=== PATIENT | female | born 1975 | race Caucasian/White ===

== ENCOUNTER 2017-06-13 12:04 | Emergency (ER) | payer OTHER ==
--- NOTE | 2017-06-13 12:33 | UC ---
Abdominal Pain Female HPI - HPI Summary HPI Summary: This 42-year-old lady comes to the urgent care today with her . She complains of abdominal pain that has been worsening over the past 2 weeks. She reports being constipated she has tried MiraLAX, mag citrate, and a fleets enema. Patient reports nausea but no vomiting. Patient reports no fever of note 6 months ago patient was started on for Calan for her headaches (chronic migraine) and recently that verapamil dose has been doubled - History of Current Complaint Chief Complaint: UCAbdominalPain Stated Complaint: ABD PAIN Time Seen by Provider: 06/13/17 12:31 Hx Obtained From: Patient ?: No Onset/Duration: Gradual Onset, Lasting Weeks - 2, Worse Since Timing: Constant - past three days Severity Initially: Moderate Severity Currently: Moderate Pain Intensity: 4 Pain Scale Used: 0-10 Numeric Location: Diffuse - But seems to be worse in the area around the ascending colon Radiates: No Character: Cramping Aggravating Factor(s): Nothing Alleviating Factor(s): Nothing Associated Signs and Symptoms: Positive: Decreased Appetite Allergies/Adverse Reactions: Allergies Allergy/AdvReac Type Severity Reaction Status Date / Time Iodinated Contrast- Oral and Allergy Swelling Verified 06/13/17 12:18 IV Dye Of Face,Lips,& Throat iodine Allergy Swelling Verified 06/13/17 12:18 Home Medications: Home Medications Verapamil TAB* [Calan TAB*] 120 mg PO DAILY 06/13/17 [History Confirmed 06/13/17 ] levETIRAcetam TAB* [Keppra TAB*] 1 tab PO BID 06/13/17 [History Confirmed ] PMH/Surg Hx/FS Hx/Imm Hx Previously Healthy: No Respiratory History: Asthma Neurological History: Seizures, Migraine Other History Of: Negative For: Anticoagulant Therapy - Surgical History Surgical History: Yes Surgery Procedure, Year, and Place: TUBAL LIGATION 2001 [facility] [place]. PARTIAL HYSTERECTOMY 2006 [facility] [place]. HEART CATH 2010 [place]. CHOLECYSTECTOMY - Family History Known Family History: Positive: Cardiac Disease - WPW, Hypertension, Diabetes, Other - Lymphoma, CVA - Social History Occupation: Unemployed Lives: With Family Alcohol Use: None Substance Use Type: None Smoking Status (MU): Never Smoked Tobacco Review of Systems Constitutional: Negative Skin: Negative Eyes: Negative ENT: Negative Respiratory: Negative Cardiovascular: Negative Gastrointestinal: Abdominal Pain, Other - Constipation Genitourinary: Negative Motor: Negative Neurovascular: Negative Musculoskeletal: Negative Neurological: Negative Psychological: Negative Is Patient Immunocompromised?: No All Other Systems Reviewed And Are Negative: Yes Physical Exam Triage Information Reviewed: Yes Appearance: Well-Appearing, No Pain Distress, Well-Nourished Vital Signs: Initial Vital Signs Temp 97.6 F 06/13/17 12:14 Pulse 87 06/13/17 12:14 Resp 18 06/13/17 12:14 BP 112/74 06/13/17 12:14 Pulse Ox 100 06/13/17 12:14 Vital Signs Reviewed: Yes Eye Exam: Normal Eyes: Positive: Conjunctiva Clear ENT Exam: Normal ENT: Positive: Normal ENT inspection, Hearing grossly normal. Negative: Nasal congestion, Trismus, Muffled voice, Hoarse voice Neck exam: Normal Neck: Positive: Supple, Nontender Respiratory Exam: Normal Respiratory: Positive: Chest non-tender, Lungs clear, Normal breath sounds, No respiratory distress, No accessory muscle use Cardiovascular Exam: Normal Cardiovascular: Positive: RRR, No Murmur, Pulses Normal, Brisk Capillary Refill Abdominal Exam: Normal Abdomen Description: Positive: No Organomegaly, Soft, Other: - Tendernes right upper and lower quadrant. Negative: CVA Tenderness (R), CVA Tenderness (L) Bowel Sounds: Positive: Present Musculoskeletal Exam: Normal Musculoskeletal: Positive: Strength Intact, ROM Intact, No Edema Neurological Exam: Normal Neurological: Positive: Alert, Muscle Tone Normal Psychological Exam: Normal Skin Exam: Normal Diagnostics - Laboratory Diagnostic Studies Completed/Ordered: UA was positive for +2blood, 1+ leuks Re-Evaluation - Re-Evaluation First Eval Change: Improved - Large amount of stool after enema patient reports feeling much better Abd Pain Female Course/Dx - Course Course Of Treatment: #1 hematuriapatient has no symptoms of urinary tract infection will cultures urine on CT Scan assist with seen on her right kidney will follow up with primary care doctor #2 abdominal painconstipation complaints of abdominal pain complaints resolved after enema reviewed options for patient to decrease problem in the future - Differential Dx/Diagnosis Provider Diagnoses: Hematuria, constipation Discharge - Sign-Out/Discharge Documenting (check all that apply): Discharge - Discharge Plan Condition: Stable Disposition: HOME Patient Education Materials: Constipation (ED), High Fiber Diet (ED), Hematuria (ED), Fleet Enema (ED) Referrals: Diana Maher MD [Primary Care Provider] - 1 Week Additional Instructions: Please follow with her primary care doctor to for reevaluation of the blood that we seen in your urine today. I'm also sending your urine for culture we will call you if you need any antibiotics. Please increase the amount of plain water that you drink every day to help manage constipation and continuation of Metamucil or MiraLAX is an absolute fine supplement for your bowel regimen - Billing Disposition and Condition Condition: STABLE Disposition: HOME
--- NOTE | 2017-06-13 13:14 | RAD ---
HISTORY: Constipation, nausea COMPARISONS: None VIEWS: Frontal supine and upright views of the abdomen. FINDINGS: BOWEL: There is a nonobstructive bowel gas pattern. There is a large amount of stool within the colon. CALCULI: There are no abnormal calculi. BONES AND SOFT TISSUES: There are no osseous abnormalities. OTHER FINDINGS: The lung bases are clear. There is no subphrenic gas. IMPRESSION: NONOBSTRUCTIVE BOWEL GAS PATTERN. LARGE AMOUNT OF STOOL WITHIN THE COLON.
[2017-06-13 14:16] VITALS: BP 136/66
--- NOTE | 2017-06-13 14:37 | RAD ---
INDICATION: Abdominal pain, hematuria. COMPARISON: Comparison is made with a prior pelvic ultrasound from May 17, 2016. TECHNIQUE: A CT scan of the abdomen and pelvis was performed without intravenous or oral contrast. Contiguous axial sections were obtained from the lung bases through the symphysis pubis. Images were reconstructed in the coronal and sagittal planes. FINDINGS: The lung bases are clear. No pleural effusion is present. The very superior aspect of the liver is cut off on the study. The liver is normal in size without significant focal abnormality on this noncontrast study. The spleen is upper limits of normal in size. The patient is status post cholecystectomy. The pancreas appears to be within normal limits. The adrenal glands and kidneys are normal in size. No renal calculi are seen. There are a couple hypodense right renal lesions measuring up to 2.1 cm in size likely representing cysts on this noncontrast study although nonspecific. Recommend a follow-up renal ultrasound for further evaluation. No hydronephrosis is seen. No ureteral or bladder calculi are noted. The aorta is normal in caliber without significant calcific plaque. No significant enlarged retroperitoneal lymph nodes are seen. The stomach, small and large bowel appear nondistended. The appendix is within normal limits. There is a moderate to large amount retained stool. There is mild sigmoid diverticulosis without evidence for diverticulitis or colitis. The patient appears to be status post partial hysterectomy. There is a fluid density lesion present within the cervix centered toward the left side measuring 2.7 x 2.0 cm in size which appears to correlate with a nabothian cyst on the prior pelvic ultrasound and appears slightly more prominent. No free intraperitoneal air or fluid is seen. No significant focal osseous abnormality is seen. IMPRESSION: 1. NO EVIDENCE FOR ACUTE FINDING OR CAUSE FOR THE PATIENT'S ABDOMINAL PAIN IS SEEN. 2. SMALL HYPODENSE RIGHT RENAL LESIONS LIKELY CYSTS RECOMMEND A FOLLOW-UP OUTPATIENT RENAL ULTRASOUND IN THIS PATIENT WITH A HISTORY OF HEMATURIA. 3. STATUS POST CHOLECYSTECTOMY AND PARTIAL HYSTERECTOMY. 4. MODERATE TO LARGE AMOUNT RETAINED STOOL.
[2017-06-13] MEDS ORDERED: Sodium Phosphate ADULT ENEMA* 118 ml bottle PR ONE (14:49)
== END 2017-06-13 15:58 | disposition home or self-care (01) ==
LOC: UCEAST 12:04
DX: R31.9 Hematuria, unspecified (principal); K59.00 Constipation, unspecified; R11.0 Nausea; Z90.49 Acquired absence of other specified parts of digestive tract; Z90.711 Acquired absence of uterus with remaining cervical stump; J45.909 Unspecified asthma, uncomplicated; R56.9 Unspecified convulsions; G43.909 Migraine, unspecified, not intractable, without status migrainosus; Z88.3 Allergy status to other anti-infective agents; Z91.041 Radiographic dye allergy status
CPT/HCPCS: 74019; 74176; 81003; 87086; 99213; A9270-GY; G0463

== ENCOUNTER 2018-03-25 16:56 | Emergency (ER) | payer OTHER ==
[2018-03-25 17:07] VITALS: BP 116/71
--- NOTE | 2018-03-25 17:54 | ED ---
Abdominal Pain/Female - HPI Summary HPI Summary: hx. of multiple ovarian cysts in the past, hx. of no dysuria pain began suddenly and awoke her from sleep earlier today. since then pain has persisted - History of Current Complaint Chief Complaint: UCAbdominalPain Stated Complaint: ABDOMINAL PAIN Time Seen by Provider: 03/25/18 16:57 Hx Obtained From: Patient Hx Last Menstrual Period: 13years ago ?: No Onset/Duration: Sudden Onset Timing: Constant Pain Intensity: 7 Location: Discrete At: RLQ Character: Sharp Alleviating Factor(s): Nothing Associated Signs and Symptoms: Positive: Negative Allergies/Adverse Reactions: Allergies Allergy/AdvReac Type Severity Reaction Status Date / Time Iodinated Contrast- Oral and Allergy Swelling Verified 03/25/18 17:07 IV Dye Of Face,Lips,& Throat iodine Allergy Swelling Verified 03/25/18 17:07 PMH/Surg Hx/FS Hx/Imm Hx Previously Healthy: No - hx. of pseudoseizures, hx. of partial hysterectomy, hx. of frequent falls Endocrine/Hematology History: Denies: Hx Anticoagulant Therapy Cardiovascular History: Reports: Hx Valvular Heart Disease - BICUSPID AORTIC VALVE replacement, Other Cardiovascular Problems/Disorders - VALVE REGURG Denies: Hx Congestive Heart Failure, Hx Pacemaker/ICD Respiratory History: Reports: Hx Asthma Denies: Hx Chronic Obstructive Pulmonary Disease (COPD) GI History: Reports: Other GI Disorders - Cholecystectomy History: Reports: Other Problems/Disorders - ovarian cysts Denies: Hx Kidney Stones, Hx Renal Disease Sensory History: Reports: Hx Contacts or Glasses - GLASSES Denies: Hx Hearing Aid Opthamlomology History: Reports: Hx Contacts or Glasses - GLASSES Neurological History: Reports: Hx Migraine - LAST ONE A YR AGO - Surgical History Surgery Procedure, Year, and Place: TUBAL LIGATION 2001 [facility] [place]. PARTIAL HYSTERECTOMY 2006 [facility] [place]. HEART CATH 2010 [place]. CHOLECYSTECTOMY Hx Anesthesia Reactions: No Infectious Disease History: No Infectious Disease History: Denies: Traveled Outside the [place] in Last 30 Days - Family History Known Family History: Positive: Cardiac Disease - WPW, Hypertension, Diabetes, Other - Lymphoma, CVA - Social History Alcohol Use: None Hx Substance Use: No Substance Use Type: Reports: None Hx Tobacco Use: No Smoking Status (MU): Never Smoked Tobacco Review of Systems Constitutional: Negative Eyes: Negative ENT: Negative Cardiovascular: Negative Respiratory: Negative Positive: Abdominal Pain Genitourinary: Negative Positive: no symptoms reported Musculoskeletal: Negative Skin: Negative Neurological: Other - hx. of pseudoseizures Positive: Anxious, Other - chronic narcotic use All Other Systems Reviewed And Are Negative: Yes Physical Exam Triage Information Reviewed: Yes Vital Signs On Initial Exam: Initial Vitals Temp Pulse Resp BP Pulse Ox 36.7 C 83 16 116/71 98 03/25/18 16:58 03/25/18 16:58 03/25/18 16:58 03/25/18 16:58 03/25/18 16:58 Vital Signs Reviewed: Yes Appearance: Positive: Well-Appearing, No Pain Distress Skin: Positive: Warm Eyes: Positive: Normal ENT: Positive: Normal ENT inspection Respiratory/Lung Sounds: Positive: Clear to Auscultation Cardiovascular: Positive: Normal Abdomen Description: Positive: Other: - tender rlq, no rebound or rigidity Bowel Sounds: Positive: Present Musculoskeletal: Positive: Normal Neurological: Positive: Slurred Speech Diagnostics - Vital Signs Vital Signs Temp Pulse Resp BP Pulse Ox 03/25/18 16:58 36.7 C 83 16 116/71 98 - Laboratory Lab Results: Lab Results 03/25/18 Range/Units 17:31 POC Urine Color Yellow POC Urine Clarity Clear POC Urine pH 5.5 (5-9) POC Ur Specif Beals 1.020 (1.010-1.030) POC Urine Protein Negative (Negative) POC Ur Glucose (UA) Negative (Negative) POC Urine Ketones Negative (Negative) POC Urine Blood 1+ A (Negative) POC Urine Nitrite Negative (Negative) POC Urine Bilirubin Negative (Negative) POC Urine Urobilinogen 0.2 (Negative) POC U Leukocyte Esteras Trace A (Negative) Lab Statement: Any lab studies that have been ordered have been reviewed, and results considered in the medical decision making process. Abdominal Pain Fem Course/Dx - Diagnoses Provider Diagnoses: Right lower quadrant abdominal pain Discharge - Sign-Out/Discharge Documenting (check all that apply): Patient Departure All imaging exams completed and their final reports reviewed: No Studies - Discharge Plan Condition: Fair Disposition: HOME-RECOMMEND TO ED Referrals: Diana Maher MD [Primary Care Provider] - Additional Instructions: to go to the ER for further evaluation of the abdominal pain - Billing Disposition and Condition Condition: FAIR Disposition: Home-Recommend to ED
== END 2018-03-25 18:02 | disposition home health service (06) ==
LOC: UCEAST 16:56
DX: R10.31 Right lower quadrant pain (principal); Z90.711 Acquired absence of uterus with remaining cervical stump; Z90.49 Acquired absence of other specified parts of digestive tract; Z91.041 Radiographic dye allergy status
CPT/HCPCS: 81003; 87086; 99212; G0463

== ENCOUNTER 2018-03-25 18:17 | Observation (INO) | payer OTHER ==
--- NOTE | 2018-03-25 18:40 | ED ---
Abdominal Pain/Female - HPI Summary HPI Summary: Patient is a 42-year-old female who presents emergency department for right lower quadrant abdominal pain that started early this morning. Patient states she was feeling unwell last night and was awoken around 0 200 today with lower abdominal pain that has progressed throughout the day. Associated symptoms of nausea and decreased appetite. Patient denies fever, chills, vomiting, diarrhea , constipation, urinary symptoms. Past medical history of bicuspid aortic valve. Patient also notes history of endometriosis and ovarian cysts. Patient states pain today feels different than her typical endometrial pain. Symptoms are moderate in severity. No current modifying factors. - History of Current Complaint Chief Complaint: EDAbdPain Stated Complaint: ABD PAIN Time Seen by Provider: 03/25/18 18:38 Hx Obtained From: Patient Hx Last Menstrual Period: 13years ago Pain Intensity: 6 Allergies/Adverse Reactions: Allergies Allergy/AdvReac Type Severity Reaction Status Date / Time Iodinated Contrast- Oral and Allergy Swelling Verified 03/25/18 18:28 IV Dye Of Face,Lips,& Throat iodine Allergy Swelling Verified 03/25/18 18:28 Home Medications: Home Medications Fluticasone-Salmeterol 100-50* [Advair Diskus 100-50*] 1 puff INH BID 03/25/18 [ History Confirmed 03/25/18] Nitroglycerin TAB 0.4 MG* 0.4 mg SL . NEEDED PRN 03/25/18 [History Confirmed 03/25/18] Ondansetron [Zofran Odt] 4 mg PO TID PRN 03/25/18 [History Confirmed 03/25/18] oxyCODONE TAB* [Roxycodone TAB 5 mg*] 5 mg PO Q8H PRN 03/25/18 [History Confirmed 03/25/18] PMH/Surg Hx/FS Hx/Imm Hx Previously Healthy: Yes Endocrine/Hematology History: Denies: Hx Anticoagulant Therapy Cardiovascular History: Reports: Hx Valvular Heart Disease - BICUSPID AORTIC VALVE replacement, Other Cardiovascular Problems/Disorders - VALVE REGURG Denies: Hx Congestive Heart Failure, Hx Pacemaker/ICD Respiratory History: Reports: Hx Asthma Denies: Hx Chronic Obstructive Pulmonary Disease (COPD) GI History: Reports: Other GI Disorders - Cholecystectomy History: Reports: Other Problems/Disorders - ovarian cysts Denies: Hx Kidney Stones, Hx Renal Disease Sensory History: Reports: Hx Contacts or Glasses - GLASSES Denies: Hx Hearing Aid Opthamlomology History: Reports: Hx Contacts or Glasses - GLASSES Neurological History: Reports: Hx Migraine - LAST ONE A YR AGO - Surgical History Surgery Procedure, Year, and Place: TUBAL LIGATION 2001 [facility] [place]IAL [place]STERECTOMY 2006 [facility] [place]. [place]ART CATH 2010 [place]. CHOLECYSTECTOMY Hx Anesthesia Reactions: No Infectious Disease History: No Infectious Disease History: Denies: Traveled Outside the [place] in Last 30 Days - Family History Known Family History: Positive: Cardiac Disease - WPW, Hypertension, Diabetes, Other - Lymphoma, CVA - Social History Occupation: Unemployed Lives: With Family Alcohol Use: None Hx Substance Use: No Substance Use Type: Reports: None Hx Tobacco Use: No Smoking Status (MU): Never Smoked Tobacco Review of Systems Constitutional: Negative Negative: Fever, Chills Cardiovascular: Negative Respiratory: Negative Positive: Abdominal Pain, Nausea. Negative: Vomiting, Diarrhea Genitourinary: Negative All Other Systems Reviewed And Are Negative: Yes Physical Exam Triage Information Reviewed: Yes Vital Signs On Initial Exam: Initial Vitals Temp Pulse Resp BP Pulse Ox 97.6 F 87 16 114/70 98 03/25/18 18:26 03/25/18 18:26 03/25/18 18:26 03/25/18 18:26 03/25/18 18:26 Vital Signs Reviewed: Yes Appearance: Positive: Well-Appearing - Pt. lying in bed in NAD. Family present. Skin: Positive: Warm, Dry Head/Face: Positive: Normal Head/Face Inspection Eyes: Positive: Normal, EOMI Neck: Positive: Supple. Negative: Nuchal Rigidity Respiratory/Lung Sounds: Positive: Clear to Auscultation, Breath Sounds Present Cardiovascular: Positive: Normal, RRR Abdomen Description: Positive: Other: - Obese. Abd. is soft with marked tenderness. Negative: CVA Tenderness (R), CVA Tenderness (L) Neurological: Positive: Normal, CN Intact II-III Psychiatric: Positive: Affect/Mood Appropriate Diagnostics - Vital Signs Vital Signs Temp Pulse Resp BP Pulse Ox 03/25/18 18:26 97.6 F 87 16 114/70 98 - Laboratory Result Diagrams: 03/25/18 19:12 03/25/18 19:12 Lab Statement: Any lab studies that have been ordered have been reviewed, and results considered in the medical decision making process. Abdominal Pain Fem Course/Dx - Course Course Of Treatment: Pt. presenting with RLQ pain and nausea. Pt. is afebrile with stable vital signs. Pt. started on IV fluids and pain medication. Pending labs. Will scan without given contrast allergy. IMPRESSION: 1. CT findings of early appendicitis. No perforation or abscess. 2. No other acute findings or change from the comparison study. Labs show mild leukocytosis and CRP. I spoke with scott bran, Dr. Padilla, who reviewed ct scans. Dr. Padilla states that scans are not very impressive at this time and she is not convinced this is truly appendicitis. She will admit pt. to her service and see pt. in the a.m. Pt. given a dose of IV zosyn in ED. Plan discussed with pt. and family. - Diagnoses Differential Diagnosis: Positive: Appendicitis, Bowel Obstruction, Constipation , Diverticulitis, Ovarian Cyst, Renal Colic Provider Diagnoses: Appendicitis Discharge - Sign-Out/Discharge Documenting (check all that apply): Patient Departure - Discharge Plan Condition: Stable Disposition: ADMITTED TO [facility] - Billing Disposition and Condition Condition: STABLE Disposition: Admitted to [facility]
[2018-03-25] MEDS ORDERED: Ondansetron INJ* 2 MG/ML VIAL IV ONE ×2 (18:46→21:36)
[2018-03-25] MEDS ORDERED: NS 0.9% 1000 ML* 1,000 ML IV ONE (18:46)
[2018-03-25] MEDS ORDERED: Morphine VIAL* 4 MG/ML VIAL (1 ml vial) IV ONE (18:48)
[2018-03-25 19:37] LABS: ABS Basophils 0.1 10^3/ul (0-0.2); ABS Eosinophils 0.2 10^3/ul (0-0.6); ABS Monocytes 0.8 10^3/ul (0-0.8); ABS Nucleated RBC 0 10^3/ul; Eosinophil % 1.6 %; Hematocrit 44 % (35-47); Hemoglobin 14.9 g/dl (12.0-16.0); Lymphocyte % 16.6 %; Mean Corpuscular HGB Conc 34 g/dl (31-36); Mean Corpuscular Hemoglobin 32 pg (27-31); Mean Corpuscular Volume 95 fL (80-97); Mean Platelet Volume 8.6 fL (7.4-10.4); Nucleated Red Blood Cells % 0.1; Platelet Count 271 10^3/ul (150-450); Red Blood Count 4.66 10^6/ul (4.00-5.40); Red Cell Distribution Width 12 % (10.5-15); White Blood Count 12.2 10^3/ul (3.5-10.8)
[2018-03-25 19:44] LABS: Albumin 4.6 g/dL (3.2-5.2); Albumin/Globulin Ratio 1.7 (1-3); BUN/Creatinine Ratio 18.1 (8-20); C Reactive Protein 77.16 mg/L (<8.01); Calcium 9.4 mg/dL (8.6-10.3); EGFR African American 90.4 (>60); EGFR Non-African American 74.7 (>60); Globulin 2.7 g/dL (2-4); Potassium 4.1 mmol/L (3.5-5.0); Total Bilirubin 0.3 mg/dL (0.2-1.0); Total Protein 7.3 g/dL (6.4-8.9)
[2018-03-25] MEDS ORDERED: HYDROmorphone INJ1* 1 MG/ML SYRINGE IV SLOW PU ONE (20:18)
[2018-03-25] MEDS ORDERED: Piperacillin/Tazobac ADVAN(*) 3.375 GM in NS 0.9% 100 ML* 100 ML IVPB ONE (20:32)
[2018-03-25] MEDS ORDERED: HYDROmorphone INJ* 0.5 MG/0.5 ML SYRINGE IV PRN (20:41)
[2018-03-25] MEDS ORDERED: Ketorolac INJ* 30 MG/ML 1 ML VIAL IV PRN (20:41)
[2018-03-25] MEDS ORDERED: Albuterol HFA INHALER* 8 gm MDI INH PRN (20:49)
[2018-03-25] MEDS ORDERED: Nitroglycerin TAB 0.4 MG* 0.4 MG TAB SL PRN (20:49)
[2018-03-25] MEDS ORDERED: Verapamil TAB* 120 MG PO SCH (21:00)
[2018-03-25] MEDS ORDERED: Fluticasone-Salmeterol 100-50* DISKUS INH SCH (21:00)
[2018-03-25] MEDS ORDERED: Ondansetron INJ* 2 MG/ML VIAL ONE (21:37)
[2018-03-25] MEDS: levETIRAcetam TAB* 500 MG PO SCH (22:12)
[2018-03-25] MEDS ORDERED: Mometasone/Formoter 100/5 MDI INH SCH (22:15)
[2018-03-25] MEDS: Lactated Ringers 1000 ML Bag* 1,000 ML IV SCH (22:27)
[2018-03-25] MEDS: Verapamil TAB* 120 MG PO SCH (22:30)
[2018-03-26] MEDS: Piperacillin/Tazobactam VIAL*) 3.375 GM in NS 0.9% 100 ML* 100 ML IVPB SCH ×3 (00:39→10:07)
[2018-03-26] MEDS: Ondansetron INJ* 2 MG/ML VIAL IV PRN ×3 (01:59→11:30)
[2018-03-26 07:06] LABS: ABS Basophils 0.1 10^3/ul (0-0.2); ABS Eosinophils 0 10^3/ul (0-0.6); ABS Lymphocytes 1.8 10^3/ul (1.0-4.8); ABS Monocytes 0.6 10^3/ul (0-0.8); ABS Neutrophils 8.4 10^3/ul (1.5-7.7); ABS Nucleated RBC 0 10^3/ul; Eosinophil % 0.4 %; Hematocrit 36 % (35-47); Hemoglobin 12.3 g/dl (12.0-16.0); Lymphocyte % 16.4 %; Mean Corpuscular HGB Conc 34 g/dl (31-36); Mean Corpuscular Hemoglobin 32 pg (27-31); Mean Corpuscular Volume 94 fL (80-97); Mean Platelet Volume 8.5 fL (7.4-10.4); Nucleated Red Blood Cells % 0.1; Platelet Count 224 10^3/ul (150-450); Red Blood Count 3.85 10^6/ul (4.00-5.40); Red Cell Distribution Width 12 % (10.5-15)
[2018-03-26] MEDS: Lactated Ringers 1000 ML Bag* 1,000 ML IV SCH (08:33)
[2018-03-26] MEDS: levETIRAcetam TAB* 500 MG PO SCH (08:33)
--- NOTE | 2018-03-26 08:47 | PN ---
Progress Note - Progress Note Date of Service: 03/26/18 Note: Surgery Progress Note Please see full dictated H&P but briefly patient is a 42 yo F with bicuspid aortic valve who presents with 2 days RLQ abdominal pain, nausea, emesis. Was found to have WBC [address] abdomen showing possible early appendicitis. Informed consent was obtained for a laparoscopic appendectomy. Patient has a loop manager monitoring used for detection of arrhythmias (not a pacemaker or a defibrillator) and cardiology has been contacted.
[2018-03-26] MEDS: Verapamil TAB* 120 MG PO SCH (09:56)
--- NOTE | 2018-03-26 12:44 | HP ---
HISTORY AND PHYSICAL: DATE OF ADMISSION: 03/25/18 SERVICE: General Surgery. ATTENDING SURGEON: Dr. Nicki Padilla. ADMISSION DIAGNOSIS: Right lower quadrant pain, possible appendicitis. HISTORY OF PRESENT ILLNESS: Ms. Rivas is a very pleasant 42-year-old female with a history of bicuspid aortic valve, who presented to the emergency room on 03/25/18 with complaints of right lower quadrant abdominal pain that she said had begun that morning. She said that she was feeling unwell and was awoken early in the morning with right lower abdominal pain that progressively got worse throughout the day. She says that she has had nausea and decreased appetite and since being in the emergency room in the hospital, she has also had bouts of emesis. She has had lower abdominal pain in the past and she had multiple ovarian cysts that caused her pelvic pain. However, she says that this pain was somewhat different in that it just was in the right lower quadrant and remained there. She denies having any fevers and her bowel movements are normal. No diarrhea, no constipation. PAST MEDICAL HISTORY: Bicuspid aortic valve, endometriosis, ovarian cyst. PAST SURGICAL HISTORY: Laparoscopic cholecystectomy, abdominal hysterectomy for endometriosis, tubal ligation, and placement of a cardiac loop monitor. MEDICATIONS: 1. Keppra 500 mg p.o. b.i.d. 2. Verapamil 120 mg p.o. b.i.d. 3. Nitroglycerin 0.4 mg tablet as needed. 4. Albuterol 2 puffs inhale q.4 hours p.r.n. 5. Advair Diskus 1 puff inhale b.i.d. ALLERGIES: IV CONTRAST. FAMILY HISTORY: Positive for hypertension and diabetes. SOCIAL HISTORY: The patient lives with her family. She is nonsmoker. REVIEW OF SYSTEMS: Negative except for as noted in HPI. PHYSICAL EXAMINATION GENERAL: This is a female lying in bed, in no apparent distress, easily conversing. VITAL SIGNS: Temperature is 98.4, pulse is 72, respiratory rate is 14, O2 sat is 98% O2 on room air, and blood pressure is 97/53. RESPIRATORY: Clear to auscultation bilaterally. No wheezes, rhonchi, or rales. CARDIOVASCULAR: Regular rate and rhythm. ABDOMEN: Soft, nondistended, and tender in the right lower quadrant. EXTREMITIES: No edema. NEURO: Alert and oriented x3. DIAGNOSTIC STUDIES/LAB DATA: Laboratory values from 03/26/18, white blood cell count is 11, hemoglobin is 12.3, hematocrit is 36, platelets are 224. From 03/25/18, sodium is 138, potassium is 4.1, chloride is 107, CO2 24, BUN 15 , creatinine is 0.83, glucose is 98, C-reactive protein is 77. Radiology: CT abdomen and pelvis from 03/25/18 shows evaluation of the appendix to the maximum diameter of approximately 9 mm, minimal inflammatory changes are present in the adjacent mesentery. This represents a change from the comparison study where the appendix was measured approximately 6 mm in greatest diameter. CT findings are early appendicitis, no perforation or abscess. ASSESSMENT AND PLAN: Ms. Rivas is a very pleasant 42-year-old female with a history of bicuspid aortic valve with ovarian cyst and endometriosis, who presented to the emergency room with a 1-day history of right lower quadrant abdominal pain, anorexia, nausea, and vomiting. She was found to have a white blood cell count of 12 when she arrived in the emergency room with the CT scan showing possible early appendicitis with appendix that was 9 mm in diameter. However, this CT scan was also done with no oral or IV contrast and on review of the imaging, it appeared that there was minimal inflammation surrounding the appendix. The patient was admitted. She was placed on antibiotics; however, her right lower quadrant pain persisted overnight despite antibiotics and pain medications. Her white blood cell count was approximately same this morning and given these findings, she very likely does have appendicitis. I discussed with the patient the surgical option to be laparoscopic appendectomy and she wishes to pursue this. I discussed with her the risks, benefits, and alternatives of the procedure and the risks that included but are not limited to bleeding, infection, intraabdominal abscess, possible injury to neighboring anatomical structures and risk from the anesthesia. The patient of note has a cardiac loop monitor which she says it is only used to monitor for arrhythmias. I have spoken to the Cardiology who said that there is nothing to do with the device and after speaking to the rep from [employer] and Dr. Mendoza says that nothing intraoperatively needs to be done for this. The plan is for the patient to undergo surgery this afternoon with Dr. Taylor. [id number]/[facility] #: [id number] [facility]
[2018-03-26] MEDS ORDERED: Midazolam* 1 MG/ML 5 ML VIAL (5 MG) ONE (13:56)
[2018-03-26] MEDS ORDERED: Scopolamine 1.5 mg* PATCH ONE (13:56)
[2018-03-26] MEDS ORDERED: Bupivacaine 0.25% W/EPI* 10 ML SDV ONE (13:56)
[2018-03-26] MEDS ORDERED: fentaNYL* 50 MCG/ML 2 ML VIAL (100 MCG VIAL) ONE (14:27)
[2018-03-26] MEDS ORDERED: Rocuronium* 10 MG/ML VIAL ONE (14:30)
[2018-03-26] MEDS ORDERED: Glycopyrrolate IV* 0.2 MG/ML 1 ML VIAL ONE (14:51)
[2018-03-26] MEDS ORDERED: Propofol* 10 MG/ML 20 ML BTL ONE (14:52)
[2018-03-26] MEDS ORDERED: Ondansetron INJ* 2 MG/ML VIAL ONE (14:52)
[2018-03-26] MEDS ORDERED: Metoclopramide IV* 5 MG/ML 2 ML VIAL ONE (14:52)
[2018-03-26] MEDS ORDERED: Lidocaine 2% PF * 5 ML VIAL ONE (14:52)
[2018-03-26] MEDS ORDERED: Dexamethasone IV* 4 MG/ML 1 ML (4 MG) ONE (14:52)
[2018-03-26] MEDS ORDERED: Succinylcholine* 20 MG/ML 10 ML VIAL ONE (14:52)
[2018-03-26] MEDS ORDERED: DiMENhydriNATE IV* 50 MG/ML VIAL ONE (14:52)
[2018-03-26] MEDS ORDERED: Ketorolac INJ* 30 MG/ML 1 ML VIAL ONE (15:00)
[2018-03-26] MEDS ORDERED: HYDROmorphone INJ1* 1 MG/ML SYRINGE ONE (15:00)
[2018-03-26] MEDS ORDERED: Acetaminophen IV 1GM/100ML * 100 ML ONE (15:17)
[2018-03-26] MEDS ORDERED: HYDROmorphone INJ1* 1 MG/ML SYRINGE IV PRN (15:21)
[2018-03-26] MEDS ORDERED: Acetaminophen IV 1GM/100ML * 1,000 MG/100 ML VIAL IVPB ONE (15:21)
[2018-03-26] MEDS ORDERED: Naloxone* 0.4 MG/ML 1 ML VIAL IV PRN (15:21)
[2018-03-26] MEDS ORDERED: oxyCODONE TAB* 5 MG TAB PO PRN (15:21)
[2018-03-26] MEDS ORDERED: DiMENhydriNATE IV* 50 MG/ML VIAL IV PUSH PRN (15:21)
[2018-03-26 17:16] VITALS: BP 120/77
--- NOTE | 2018-03-27 00:10 | OP ---
CC: Dr. Diana Maher * DATE OF OPERATION: 03/26/18 - ROOM #333 DATE OF : 71 SURGEON: Axel Taylor MD COIL BUILDER: None. ANESTHESIOLOGIST: Dr. Puente. ANESTHESIA: General anesthetic, local infiltration. PRE-OP DIAGNOSIS: Appendicitis. POST-OP DIAGNOSIS: Appendicitis. OPERATIVE PROCEDURE: Laparoscopic appendectomy. DESCRIPTION OF PROCEDURE: The patient was supine on the operative table. After adequate general anesthetic, compression stockings, Lawson Hugger warmer, and intravenous antibiotics, the abdomen was prepped antiseptic, draped in a sterile fashion. Local infiltrative anesthesia was administered and small umbilical incision was created. Blunt port cannula was put in under direct vision and insufflation was carried out with carbon dioxide. Additional cannulae, 5 mm left lower quadrant and left mid abdomen, were placed through small stab wounds under direct vision. The inspection of the abdominal cavity revealed some adhesions in the pelvis from previous surgery and I was able to get a look at the right ovary which had a small cyst, nothing very impressive. I did take a couple of pictures for Dr. Morley's purposes. The left pelvis had a lot of adhesions from the sigmoid colon down over the tube and ovary region, and it was felt that it was not warranted to take down all the adhesions in order to examine that ovary. Attention was then turned to the region of the appendix and there was early acute appendicitis and no evidence of perforation or gangrene or abscess. The appendix was tented upward. A [place] dissector was used to create a window between the appendix and the mesoappendix. The mesoappendix was divided using an Endo JULI stapler with a sherwood load and the base of thee appendix using a min load stapler. The appendix was put in a retrieval bag and brought out through the umbilical site. There was oozing from the staple line and pressure was held for a little while and ultimately some surgical mana were used to reinforce the staple line to stop the bleeding. This created good hemostasis, and further inspection was good. 4x4s were used to remove any of the drainage and further inspection yielded adequate hemostasis. The cannulae were removed. Pneumoperitoneum allowed to escape. The umbilical fascia was closed with 0 Vicryl and skin with 5-0 Vicryl followed by Steri-Strips. She tolerated the procedure well, was awakened, extubated, and brought to recovery in good condition. There were no complications. No drains. Pathologic specimen was appendix. Sponge and instrument counts were correct. Estimated blood loss was 30 mL. [id number]/[facility] #: [id number] [facility]
--- NOTE | 2018-04-01 11:34 | DS ---
CC: Axel Taylor MD; Dr. Diana Maher.* DISCHARGE SUMMARY: DATE OF ADMISSION: 03/25/18 DATE OF DISCHARGE: 03/26/18 PRINCIPAL ADMITTING DIAGNOSIS: Appendicitis. HOSPITAL COURSE: The patient is a 42-year-old female who came to the hospital late evening of 03/25/18, was taken to the operating room the next morning and underwent laparoscopic appendectomy. She had an uneventful postoperative course and was discharged later that same afternoon. She was discharged home with instructions and will follow up in the office in the near future. [id number]/[facility] #: [id number] [facility]D
== END 2018-03-26 17:16 | disposition home or self-care (01) ==
LOC: ED 18:17 → SSU 21:21 → INTOOBSV 21:21
PROVIDERS: ADMIT Surgery; ATTEND Surgery
DX: K37 Unspecified appendicitis (principal); R10.31 Right lower quadrant pain; R11.0 Nausea; Z87.42 Personal history of other diseases of the female genital tract; Z87.74 Personal history of (corrected) congenital malformations of heart and circulatory system
CPT/HCPCS: 36415; 74176; 80053; 85025; 86140; 88304; 94640; 96365; 96375; 96376; 99284; A9270-GY; G0378; J0330; J1100; J1170; J1240; J1885; J2250; J2270; J2405; J2543; J2704; J2765; J3010

== ENCOUNTER 2020-12-29 14:21 | Observation (INO) ==
[2020-12-29 17:51] LABS: ABS Basophils 0.1 10^3/ul (0-0.2); ABS Eosinophils 0.2 10^3/ul (0-0.6); ABS Lymphocytes 1.4 10^3/ul (1.0-4.8); ABS Monocytes 0.6 10^3/ul (0-0.8); ABS Neutrophils 4.4 10^3/ul (1.5-7.7); Eosinophil % 2.8 %; Hematocrit 43 % (35-47); Hemoglobin 15.2 g/dL (12.0-16.0); Lymphocyte % 21.1 %; Mean Corpuscular HGB Conc 35 g/dL (31-36); Mean Corpuscular Hemoglobin 33 pg (27-31); Mean Corpuscular Volume 93 fL (80-97); Platelet Count 304 10^3/uL (150-450); Red Blood Count 4.62 10^6 /uL (3.70-4.87); Red Cell Distribution Width 12 % (10-15); White Blood Count 6.6 10^3/uL (3.5-10.8)
[2020-12-29 18:04] LABS: INR 1.02 (0.86-1.15)
[2020-12-29 18:07] LABS: Albumin 4.6 g/dL (3.2-5.2); Albumin/Globulin Ratio 1.4 (1-3); Calcium 9.7 mg/dL (8.6-10.3); Globulin 3.3 g/dL (2-4); Potassium 4.2 mmol/L (3.5-5.0); Total Bilirubin 0.4 mg/dL (0.2-1.0); Total Protein 7.9 g/dL (6.4-8.9)
[2020-12-29] MEDS ORDERED: Ondansetron 4 mg VIAL 2 MG/ML 2 ml VIAL IV ONE ×2 (18:13→19:54)
[2020-12-29] MEDS ORDERED: Morphine 4 MG/ML VIAL (1 ml) IV ONE (18:13)
[2020-12-29] MEDS ORDERED: Lactated Ringers 1000 ml BAG 1,000 ML IV ONE (19:54)
[2020-12-29 21:22] LABS: TSH Ultra Thyroid Stim Horm 1.86 mcIU/mL (0.34-5.60)
[2020-12-29 21:24] LABS: Free T4 0.81 ng/dL (0.61-1.12)
[2020-12-29] MEDS ORDERED: HYDROmorphone 0.5 MG/0.5 ML SYRINGE IV ONE (21:48)
[2020-12-29] MEDS ORDERED: Famotidine IV 10 MG/ML 2 ml VIAL (20 mg) IV SLOW PU ONE (21:48)
[2020-12-29] MEDS ORDERED: Al Hydrox/Mg Hydrox/Simet LIQ 30 ML UDC PO ONE (21:48)
[2020-12-29] MEDS ORDERED: Droperidol 5 MG/2 ML 2 ML VIAL IV ONE (23:08)
[2020-12-29] MEDS ORDERED: NS 0.9% 1000 ml BAG 1,000 ML IV SCH (23:45)
[2020-12-29] MEDS ORDERED: GALCANEZUMAB GNLM 120 MG/ML SUBCUT SCH (23:45)
[2020-12-29] MEDS ORDERED: UBROGEPANT 50 MG TABLET PO PRN (23:55)
[2020-12-29] MEDS ORDERED: Albuterol HFA INHALER 8 gm MDI INH PRN (23:57)
[2020-12-29] MEDS ORDERED: Ondansetron 4 mg VIAL 2 MG/ML 2 ml VIAL IV PRN (23:58)
[2020-12-30 00:51] LABS: Rapid COVID-19 Molecular Undetected (Undetected)
[2020-12-30] MEDS ORDERED: Trospium 20 mg TAB (NF) PO SCH (09:00)
[2020-12-30] MEDS ORDERED: DULoxetine DR 60 mg CAP PO SCH (09:00)
[2020-12-30] MEDS ORDERED: Mometasone/Formoter 100/5 MDI INH SCH (09:00)
[2020-12-30 15:39] VITALS: BP 116/63
== END 2020-12-30 15:08 | disposition home or self-care (01) ==
LOC: ED 14:21 → EDHOLD 14:21 → SUATTDRO 23:59 → MEDTELE 12-30 04:42
PROVIDERS: ADMIT Internal Medicine; ATTEND Hospitalist